=== PATIENT | male | born 1955 | race Caucasian/White ===

== ENCOUNTER → 2021-07-04 | Outpatient (CLI) | payer MEDICARE ==
[~2021-07-04] VITALS: Ht 182.9 cm; Wt 71.5 kg
[~2021-07-04] MED LIST: AMBIEN 5MG TABLE5 MG PO; BYSTOLIC10 MG PO; COZAAR 50MG50 MG/TAB PO; DESYREL 50MG50 MG PO; EFFEXOR 75M75 MG/TAB PO; MOBIC15 MG PO; NATURE'S BLEND100 M2 PO; NORCO 325 MG-7.1 TAB PO; NORVASC 5MG5 MG/TAB PO; PRIL40 PO
[2021-07-04 08:28] VITALS: BP 174/78; PULSE 83; TEMP 98.5
[2021-07-04 09:40] VITALS: BP 162/75; PULSE 75
== END ==
LOC: COL.RAD 08:17
DX: M47.816 Spondylosis without myelopathy or radiculopathy, lumbar region (principal); M51.36 Other intervertebral disc degeneration, lumbar region
CPT/HCPCS: J3301

== ENCOUNTER → 2022-02-14 | Outpatient (CLI) | payer MEDICARE ==
[~2022-02-14] VITALS: Ht 182.9 cm; Wt 71.0 kg
[~2022-02-14] MED LIST changes: +ZESTRIL 10MG10 MG PO
[2022-02-14 09:45] VITALS: BP 175/72; PULSE 78; TEMP 98.7
[2022-02-14 10:55] VITALS: BP 156/72; PULSE 78
== END ==
LOC: COL.RAD 09:25
DX: M54.50 Low back pain, unspecified (principal); G89.29 Other chronic pain
CPT/HCPCS: J3301